=== PATIENT | female | born 1940 ===

== ENCOUNTER 2019-06-21 09:03 | Emergency (ER) | payer MEDICARE ==
--- NOTE | 2019-06-21 10:10 | UC ---
Respiratory Complaint HPI - HPI Summary HPI Summary: 79-year-old female with history of COPD presents with 2-3 day history of chest congestion, increased shortness of breath, and loose nonproductive cough. Associated with some nasal congestion and sore throat. No known fever. States she feels short of breath mainly with activity. Has been needing to use her rescue inhaler more frequently and states that she has used it at least 3 times a day for the past couple of days. Reports multiple hospitalizations in the past for COPD exacerbations. She is followed by Dr. Anton Gavin, pulmonology. Denies chest pain, palpitations, edema, diaphoresis, abdominal pain, nausea, or vomiting. - History of Current Complaint Chief Complaint: UCRespiratory Stated Complaint: CHEST CONGESTION RUNNY NOSE HX COPD Hx Obtained From: Patient Pain Intensity: 0 - Allergies/Home Medications Allergies/Adverse Reactions: Allergies Allergy/AdvReac Type Severity Reaction Status Date / Time bupropion [From Zyban] Allergy "My mouth Verified 06/21/19 09:34 got all hot..." Home Medications: Home Medications Albuterol HFA INHALER* [Ventolin HFA Inhaler*] 1 - 2 puff INH Q4H PRN 06/21/19 [ History Confirmed 06/21/19] Biotin 1 mg PO DAILY 06/21/19 [History Confirmed 06/21/19] Cholecalciferol (Vitamin D3) [Vitamin D3] 25 mcg PO DAILY 06/21/19 [History Confirmed 06/21/19] Latanoprost 0.005%* [Xalatan 0.005%*] 1 drop BOTH EYES QPM 06/21/19 [History Confirmed 06/21/19] Lisinopril TAB* [Prinivil TAB*] 5 mg PO DAILY 06/21/19 [History Confirmed ] Phenylephrine/Dm/Acetaminop/GG [Tylenol Cold-Flu Severe Caplet] 2 cap PO Q4H PRN 06/21/19 [History Confirmed 06/21/19] Umeclidin/Vilant 62.5 MDI(NF) [ANORO 62.5/25 Ellipta DEVICE (NF)] 1 inh INH QAM 06/21/19 [History Confirmed 06/21/19] PMH/Surg Hx/FS Hx/Imm Hx Cardiovascular History: Hypertension Respiratory History: COPD - Surgical History Surgical History: None - Family History Known Family History: Positive: Non-Contributory - Social History Occupation: Retired Lives: With Family Alcohol Use: None Substance Use Type: None Smoking Status (MU): Former Smoker Type: Cigarettes Length of Time of Smoking/Using Tobacco: <1 PPD x 62 Years When Did the Patient Quit Smoking/Using Tobacco: 09/2018 Review of Systems All Other Systems Reviewed And Are Negative: Yes Constitutional: Negative: Fever, Chills Eyes: Negative: Drainage, Eye Redness ENT: Positive: Sore Throat, Nasal Discharge, Sinus Congestion. Negative: Ear Ache, Sinus Pain/Tenderness Respiratory: Positive: Shortness Of Breath, Cough Cardiovascular: Negative: Palpitations, Chest Pain Gastrointestinal: Negative: Abdominal Pain, Vomiting, Nausea Genitourinary: Positive: Negative Musculoskeletal: Positive: Negative Neurological: Positive: Negative Is Patient Immunocompromised?: No Physical Exam - Summary Physical Exam Summary: GENERAL APPEARANCE: Alert and cooperative, chronically ill-appearing, older adult female who appears to be in no acute distress. EYES: Conjunctiva clear. No drainage. EARS: External auditory canals and tympanic membranes clear, hearing grossly intact. NOSE: Mild-moderate nasal congestion. No nasal discharge. THROAT: Pharyngeal cobblestoning. No tonsilar inflammation, swelling, exudate, or lesions. Uvula midline. NECK: Neck supple, non-tender without lymphadenopathy. CARDIAC: Normal S1 and S2. No S3, S4 or murmurs. Rhythm is regular. There is no peripheral edema, cyanosis or pallor. Extremities are warm and well perfused. Capillary refill is less than 2 seconds. Peripheral pulses intact. LUNGS: Diminished breath sounds bilaterally with course crackles noted in the base of the left lung. Harsh, loose, non-productive cough. ABDOMEN: Positive bowel sounds. Soft, nondistended, nontender. No guarding or rebound. No masses or hepatosplenomegally. MUSKULOSKELETAL: ROM intact to all extremities. No joint erythema or tenderness. Normal muscular development. Normal gait. SKIN: Skin normal color, texture and turgor with no lesions or eruptions. Triage Information Reviewed: Yes Vital Signs: Initial Vital Signs Temp 98.8 F 06/21/19 09:31 Pulse 76 06/21/19 09:31 Resp 20 06/21/19 09:31 BP 144/64 06/21/19 09:31 Pulse Ox 95 06/21/19 09:31 Vital Signs Reviewed: Yes Diagnostics - Radiology No standard instances Radiology Interpretation Completed By: Radiologist Summary of Radiographic Findings: Order Information: CHEST PA LAT 2 VWS. INDICATION: Cough, congestion and history of COPD. COMPARISON: There are no prior studies available for comparison. TECHNIQUE: Dual-energy PA and lateral views of the chest were obtained. FINDINGS: The heart is within normal limits in size. Mediastinal and hilar contours appear within normal limits. The lungs are hyperinflated. There are linear densities at both lung bases most consistent with subsegmental atelectasis. The lungs are otherwise clear. No pleural effusion is seen. There are moderate compression fractures of 2 mid dorsal vertebral bodies. IMPRESSION: 1. FINDINGS CONSISTENT WITH COPD, NO EVIDENCE FOR ACUTE DISEASE. 2. DORSAL VERTEBRAL BODY COMPRESSION FRACTURES. Respiratory Course/Dx - Course Course Of Treatment: 79-year-old female with history of COPD presents with 2-3 day history of chest congestion, increased shortness of breath, and loose nonproductive cough. Associated with some nasal congestion and sore throat. No known fever. States she feels short of breath mainly with activity. Has been needing to use her rescue inhaler more frequently and states that she has used it at least 3 times a day for the past couple of days. Reports multiple hospitalizations in the past for COPD exacerbations. She is followed by Dr. Atnon Gavin, pulmonology. Denies chest pain, palpitations, edema, diaphoresis, abdominal pain, nausea, or vomiting. Afebrile. Hypertensive otherwise vital signs stable. Patient had [id number]-[id number] nasal congestion, pharyngeal cobblestoning without tonsillar swelling or exudate, no cervical lymphadenopathy, diminished bilateral breath sounds with some coarse crackles in the left base, a harsh, loose nonproductive cough, and otherwise unremarkable exam. Patient did desaturate from 93% to 89% with ambulation with a mild increase in heart rate from from 80s to 100s and she did report some mild dyspnea. Chest x-ray showed chronic changes consistent with COPD but no acute cardiopulmonary pathology. Patient was given a DuoNeb treatment and stated that her breathing improved and she was able to cough up some sputum. We discussed that her symptoms are likely from a upper respiratory infection with an exacerbation of her COPD. Will plan to treat her with a course of Augmentin 875 mg twice a day 10 days as well as place her on a prednisone taper. She is to follow-up with her primary care provider in 3-5 days and states she will call today to make that appointment. 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 Anticipatory guidance and warning symptoms were reviewed with the patient. Verbalizes understanding and agrees with plan of care. - Differential Dx/Diagnosis Differential Diagnosis/HQI/PQRI: Bronchitis, Exacerbation Of COPD, Influenza, Lower Resp Infection, Sinusitis, Other - URI Provider Diagnosis: URI (upper respiratory infection), COPD exacerbation Discharge ED - Sign-Out/Discharge Documenting (check all that apply): Patient Departure All imaging exams completed and their final reports reviewed: Yes - Discharge Plan Condition: Stable Disposition: HOME Prescriptions: Amoxicillin/Clavulanate TAB* [Augmentin TAB 875*] 875 mg PO BID 10 Days #20 tab predniSONE TAB* [Deltasone 10 MG TAB*] 10 mg PO DAILY #30 tab Patient Education Materials: Upper Respiratory Infection (ED), COPD (Chronic Obstructive Pulmonary Disease) (ED) Referrals: No Primary Care Phys,NOPCP [Primary Care Provider] - Anton Gavin MD [Medical Doctor] - Additional Instructions: The chest x-ray performed in the clinic today showed no evidence of pneumonia. Your history and exam are consistent with an upper respiratory infection with exacerbation of your COPD. We will start you on an antibiotic to treat the infection as well as a prednisone taper to treat for the exacerbation. Start Augmentin 875 mg 1 tablet twice a day for 10 days. Start prednisone 40 mg (4 tablets) daily for 3 days, then 30 mg (3 tablets) daily for 3 days, then 20 mg (2 tablets) daily for 3 days, then 10 mg (1 tablet ) daily for 3 days, then stop. Take over the counter acetaminophen (Tylenol) according to directions as needed for pain or fever. Use salt water gargles several times a day if you have a sore throat. Follow up with your primary care provider in 3-5 days for a recheck of your symptoms. Call today for an appointment. Seek immediate medical attention in the emergency room if you have fever greater than 100.5 F despite taking acetaminophen or ibuprofen, have chest pain , difficulty breathing, or have any worsening of symptoms. - Billing Disposition and Condition Condition: STABLE Disposition: Home
[2019-06-21] MEDS ORDERED: Albuterol/Ipratropium NEB.SOL* Albuterol 2.5 MG/Ipratropium 0.5 MG 3 ML INH ONE (10:19)
[2019-06-21 11:30] VITALS: BP 145/71
== END 2019-06-21 11:30 | disposition home or self-care (01) ==
LOC: UCCORT 09:03
DX: J44.1 Chronic obstructive pulmonary disease with (acute) exacerbation (principal); J06.9 Acute upper respiratory infection, unspecified; S22.000A Wedge compression fracture of unspecified thoracic vertebra, initial encounter for closed fracture; X58.XXXA Exposure to other specified factors, initial encounter; Y92.9 Unspecified place or not applicable; I10 Essential (primary) hypertension; Z79.899 Other long term (current) drug therapy; Z88.8 Allergy status to other drugs, medicaments and biological substances; Z87.891 Personal history of nicotine dependence
CPT/HCPCS: 71046; 99212; A9270-GY; G0463